=== PATIENT | male | born 1980 | race Caucasian/White ===

== ENCOUNTER 2020-12-17 07:37 | Observation (INO) ==
[2020-12-17] MEDS ORDERED: NORMAL SALINE 1,000 ML IV ONE (07:56)
--- NOTE | 2020-12-17 08:06 | ERNOTE ---
Abdominal HPI - Narrative Date of Service: 12/17/20 - General Chief Complaint: Abdominal Pain Time Seen by Provider: 12/17/20 07:56 Source: patient, family Exam Limitations: no limitations - Immun/Allergies/Home Medications Immunizatons: IMMUNIZATION HX Immunizations Up to Date Yes History of Influenza Vaccine No Hx Pneumococcal Vaccination No Allergies/Adverse Reactions: Allergies Sulfa (Sulfonamide Antibiotics) [Sulfa(Sulfonamide Antibiotics)] Allergy (Verified 11/18/20 17:23) ciprofloxacin [From Cipro] Adverse Reaction (Verified 11/18/20 17:23) pain in legs ciprofloxacin HCl [From Cipro] Adverse Reaction (Verified 11/18/20 17:23) pain in legs Home Medications: HOME MEDICATIONS fluoxetine 20 mg capsule 40 mg PO DAILY #60 cap 09/12/20 [Last Taken Unknown] olanzapine 15 mg tablet 15 mg PO HS #30 tab 09/12/20 [Last Taken Unknown] Omeprazole 40 mg PO DAILY #10 capsule. 11/18/20 [Last Taken Unknown] alprazolam 2 mg tablet 2 mg PO TID PRN #90 tab 11/28/20 [Last Taken Unknown] Cyclobenzaprine HCl 10 mg PO DAILY 12/17/20 [Last Taken Unknown] - History of Present Illness Narrative: Patient presents to the ED for eyes turning yellow. He reportedly is a heavy drinker. For the last few days he has noticed diffuse abdominal pain and his eyes turning yellow. No CP or SOB. He has cut back his drinking due to this. Denies any withdrawal symptoms. No fever. He has had pancreatitis before but this feels different. Has never had anything like this before. Has not seen anyone else for this new problem. Timing: constant, getting worse Quality: moderate Activities at Onset: none Modifying Factors - (Improves): Present: other - nothing Modifying Factors - (Worsens): Present: other - nothing Associated Symptoms: Absent: diarrhea-gross blood, fever/chills, shortness of breath Prior Abdominal Problems: Absent: similar symptoms Prior Treatment: Absent: recently seen Review of Systems - Review of Systems Constitutional: Absent: fever EYE: Present: see HPI ENT: Absent: sore throat Respiratory: Absent: shortness of breath Cardiology: Absent: chest pain Gastrointestinal/Abdominal: Present: abdominal pain Genitourinary: Present: other - ydark urine Neurological: Absent: weakness All Other Systems: All systems neg except as marked Medical History (Last Reviewed 12/17/20 @ 08:05 by Kel Jackson MD) Insomnia due to mental disorder (Chronic) Major depression (Chronic) Generalized anxiety disorder (Chronic) Lumbar back pain with radiculopathy affecting right lower extremity (Acute) Onset Date: ~2012 Chronic back pain (Chronic) Onset Date: Unknown Anxiety (Resolved) Onset Date: Unknown Depression (Resolved) Onset Date: Unknown Surgical History: Surgical History (Last Reviewed 12/17/20 @ 08:05 by Kel Jackson MD) H/O adenoidectomy Onset Date: Unknown H/O nasal septoplasty Onset Date: Unknown History of tonsillectomy Onset Date: Unknown finger surgery Onset Date: ~1998 right 5th Family History: Family History (Last Reviewed 12/17/20 @ 08:05 by Kel Jackson MD) Father Heart disease COPD (chronic obstructive pulmonary disease) Mother Hyperlipemia Heart disease Social History: (Last Reviewed 12/17/20 @ 08:05 by Kel Jackson MD) Social History: adopted: No foster care: No chcf: No Marital status: Single lives independently: No household members: family caregiver/support person: No current occupational status: disabled Highest level of school completed/degree received: high school graduate Service: No Tobacco: Smoking Status: Current every day smoker tobacco type: cigarettes Smoking cigarettes per day: 5 Alcohol: alcohol intake: current Alcohol type: beer alcohol intake frequency: other details: hx of ETOH abuse decrease to two beers per day two days ago Substance Use: substance use type: does not use details: occassional Dietary Habits: caffeine: Yes caffeine comment: some days Physical Exam - Physical Exam General Appearance: Present: alert, no apparent distress, other - jaundice Head Exam: Present: normal inspection, no evidence of injury Eye Exam: Normal inspection: bilateral - scleral icterus, PERRL: bilateral Ears, Nose, Throat: Present: normal ENT inspection Neck: Present: normal inspection Respiratory: Present: no respiratory distress Cardiovascular/Chest: Present: normal peripheral pulses, tachycardia Gastrointestinal/Abdominal: Present: normal bowel sounds, soft, other - mild diffuse abdominal tendenress, no peritoneal signs Back Exam: Absent: CVA tenderness (R), CVA tenderness (L) Extremity Exam: Present: normal range of motion, pedal edema Neurological Exam: Present: alert, no motor/sensory deficits Skin Exam: Present: warm/dry, jaundice Progress - Results and Orders Patient's Lab Results:: I have reviewed the patient's lab results. - Vital Signs Patient's Vital Signs:: I have reviewed the patient's vital signs. Vital Signs: Vital Signs 12/17/20 07:40 Temperature 37.2 C Pulse Rate 108 H Respiratory Rate 14 Blood Pressure 143/104 H O2 Sat by Pulse Oximetry 96 - CT/Ultrasound CT/Ultrasound Narrative: I reviewed official US report for abdominal ultrasound - Progress/Reassessment Chief Complaint: Abdominal Pain Progress Note-Subjective: 12/17/20 16:27 Patient given IV fluids. I initially spoke with Dr Crowley wit plan to transfer to [facility]. I spoke with Dr Leon at [facility]. Patient accepted for direct admit but no beds available. Initially it was felt that bed may become available this afternoon but after calling several times it became clear that no bed would be available until tomorrow at [facility] for transfer. Given this case management contacted, patient will be admitted obs here pending transfer to [facility]. I discussed the case again with Dr Crowley who will admit obs pending transfer. Departure Clinical Impression: Jaundice, Hyperbilirubinemia, Elevated liver enzymes, Alcohol abuse - Departure Disposition: Still a patient Condition: Fair Referrals: Johana Garrett FNP [Primary Care Provider] -
[2020-12-17 08:21] LABS: Hematocrit 43.5 % (42.0-52.0); Hemoglobin 16.1 gm/dL (13.5-18.0); Mean Corpuscular Hemoglobin 33.7 pg (27-31); Mean Platelet Volume 10.6 fl (8-11.3); Neutrophil # 8.4 K/mm3 (1.3-6.0); Neutrophil % 70.3 % (42-75.0); Platelet Count 149 K/mm3 (150-450); Red Blood Count 4.78 M/mm3 (4.7-6.0); Red Cell Distribution Width 15.9 % (11.5-14.0); White Blood Count 11.9 K/mm3 (4.0-10.5)
[2020-12-17 08:26] LABS: Urine Bilirubin 6 mg/dl (NEGATIVE); Urine Blood Negative /ul (NEGATIVE); Urine Ketone 5 mg/dL (NEGATIVE); Urine Protein 100 mg/dL (NEGATIVE); Urine Urobilinogen Normal (NORMAL)
[2020-12-17 08:30] LABS: Prothrombin Time (Patient) 14.8 Seconds (9.1-10.7)
[2020-12-17 08:36] LABS: INR 1.45 INR (0.92-1.08)
[2020-12-17 08:37] LABS: Partial Thrombolplastin Time 30.6 Seconds (24-32)
[2020-12-17 08:38] LABS: Urine Appearance Slightly Cloudy (CLEAR); Urine Bacteria 2+; Urine Color Orange; Urine Nitrite Positive (NEGATIVE); Urine RBC 0-5 /hpf (0-5); Urine WBC 0-5 /hpf (0-5)
[2020-12-17 08:39] LABS: Urine Mucus Moderate - 2+
[2020-12-17 08:44] LABS: ALT 262 U/L (19-67); Albumin * 2.6 gm/dl (3.4-5.0); Alkaline Phosphatase * 838 U/L (50-170); Anion Gap 20.3 mmol/L (6.8-13.8); BUN/Creatinine Ratio 4.1 (9.0-21.6); Bilirubin, Total 17.4 mg/dL (0.0-1.1); Blood Urea Nitrogen 5 mg/dL (6-23); CK Total * 323 U/L (0-259); CRP 4.4 mg/dL (0.0-0.9); Ca. Corrected For Albumin 9.1 mg/dL (8.4-10.2); Calcium * 8.3 mg/dL (7.9-10.9); Carbon Dioxide 19.5 mmol/L (24-32.6); Chloride 93 mmol/L (97-106); Glucose * 157 mg/dL (70-110); Lipase 41 U/L (73-393); Potassium 2.8 mmol/L (3.4-4.6); Sodium 130 mmol/L (132-142); TSH * 2.824 uIU/mL (0.358-3.74); Total Protein 6.3 gm/dL (6.2-8.2)
[2020-12-17 08:52] LABS: Urine Barbiturate Negative (NEGATIVE)
[2020-12-17 08:53] LABS: Cocaine Ur Negative (NEGATIVE); Urine Benzodiazepines Positive (NEGATIVE); Urine Opiates Negative (NEGATIVE); Urine PCP Negative (NEGATIVE); Urine THC Positive (NEGATIVE)
[2020-12-17] MEDS ORDERED: POTASSIUM CHLORIDE IN WATER 100 ML IV ONE (08:59)
[2020-12-17] MEDS ORDERED: cefTRIAXone SODIUM 1,000 MG/100 ML BAG IV ONE (09:02)
[2020-12-17 09:11] LABS: Bilirubin Direct 14.1 mg/dL (0.0-0.3); Magnesium 1.5 mg/dL (1.2-2.8)
[2020-12-17 10:01] LABS: AST 331 U/L (0-48)
--- NOTE | 2020-12-17 17:16 | HP ---
Chief Complaint - Chief Complaint Date of Service: 12/17/20 Time of Service: 16:36 Chief Complaint: Abdominal pain History of Present Illness: 40-year-old male with a past medical history of alcohol abuse, depression, anxiety, insomnia, lumbar back pain with radiculopathy presents from home with complaints of abdominal pain and jaundice. He states his abdominal pain started a month and a half ago. His last drink was 3 days ago. He typically drinks 4 to 5, 25 ounce beers daily. He states he stopped drinking 3 days ago because he noted his eyes were yellow. He presented to the ER today and was found to have white blood cell count of 11.9, sodium of 130, potassium of 2.8, lactic acid of 2.6, direct bilirubin of 14.1, AST of 331, ALT of 262, alk phos of 838, GGT of 2591, tox screen is positive for benzos and marijuana. Ultrasound of his abdomen was positive for severe diffuse hepatic steatosis and hepatic enlargement, no appreciable bile duct dilation, gallbladder wall is at the upper limit of normal thickness with some very minimal joaquin-Quyen cystic fluid, no evidence of gallstones or acute cholecystitis, ERCP may be warranted if symptoms persist. ER physician attempted to transfer the patient to the [facility] to be evaluated by GI/hepatology but there are currently no beds available. The ER physician stated that he was told there will be a bed available tomorrow. Patient will be admitted today for intermittent management until transfer can be arranged to for higher level of care. Medical History (Last Reviewed 12/17/20 @ 17:45 by Kobi Phan RN) Insomnia due to mental disorder (Chronic) Major depression (Chronic) Generalized anxiety disorder (Chronic) Lumbar back pain with radiculopathy affecting right lower extremity (Acute) Onset Date: ~2012 Chronic back pain (Chronic) Onset Date: Unknown Anxiety (Resolved) Onset Date: Unknown Depression (Resolved) Onset Date: Unknown Surgical History: Surgical History (Last Reviewed 12/17/20 @ 17:45 by Kobi Phan RN) H/O adenoidectomy Onset Date: Unknown H/O nasal septoplasty Onset Date: Unknown History of tonsillectomy Onset Date: Unknown finger surgery Onset Date: ~1998 right 5th Family History: Family History (Last Reviewed 12/17/20 @ 17:45 by Kobi Phan RN) Father Heart disease COPD (chronic obstructive pulmonary disease) Mother Hyperlipemia Heart disease Social History: (Last Reviewed 12/17/20 @ 17:45 by Kobi Phan RN) Social History: adopted: No foster care: No fci: No Marital status: Single lives independently: No household members: family caregiver/support person: No current occupational status: disabled Highest level of school completed/degree received: high school graduate Service: No Tobacco: Smoking Status: Current every day smoker tobacco type: cigarettes Smoking cigarettes per day: 5 Alcohol: alcohol intake: current Alcohol type: beer alcohol intake frequency: other details: hx of ETOH abuse decrease to two beers per day two days ago Substance Use: substance use type: does not use details: occassional Dietary Habits: caffeine: Yes caffeine comment: some days Review Of Systems (GEN) - Review of Systems Generalized/Overall Review: Present: Chills. Absent: Fever EENTM: Present: Other - Jaundice bilaterally Respiratory: Absent: Shortness of Breath Cardiac: Absent: Chest Pain Abdominal: Present: Abdominal Pain - Diffuse Misc: All systems neg except as marked Immunizations: IMMUNIZATION HX Immunizations Up to Date Yes History of Influenza Vaccine No Hx Pneumococcal Vaccination No Allergies/Adverse Reactions: Allergies Allergy/AdvReac Type Severity Reaction Status Date / Time Sulfa (Sulfonamide Allergy Verified 12/17/20 17:45 Antibiotics) [Sulfa(Sulfonamide Antibiotics)] ciprofloxacin [From Cipro] AdvReac pain in Verified 12/17/20 17:45 legs ciprofloxacin HCl AdvReac pain in Verified 12/17/20 17:45 [From Cipro] legs Home Medications: HOME MEDICATIONS fluoxetine 20 mg capsule 40 mg PO DAILY #60 cap 09/12/20 [Last Taken Unknown] olanzapine 15 mg tablet 15 mg PO HS #30 tab 09/12/20 [Last Taken Unknown] Omeprazole 40 mg PO DAILY #10 capsule. 11/18/20 [Last Taken Unknown] alprazolam 2 mg tablet 2 mg PO TID PRN #90 tab 11/28/20 [Last Taken Unknown] Cyclobenzaprine HCl 10 mg PO BID 12/17/20 [Last Taken Unknown] Exam - Exam Vital Signs: Vital Signs - Last Taken Temp 37.2 C 12/17/20 07:40 Pulse 104 H 12/17/20 13:30 Resp 19 12/17/20 13:30 BP 119/91 H 12/17/20 13:30 Pulse Ox 97 12/17/20 13:30 Constitutional: Present: Alert, Cooperative, Well developed, Well nourished, No distress, Young ENT Exam: Present: moist mucous membranes Eye Exam: bilateral eye: PERRL, EOMI, scleral icterus Neck: Present: non-tender, supple. Absent: lymphadenopathy (R), lymphadenopathy (L) Back Exam: Present: no CVA tenderness, no vertebral tenderness Respiratory: Present: lungs clear, no respiratory distress, no accessory muscle use, No wheezing. Absent: crackles, rhonchi Cardiovascular/Chest: Present: normal peripheral pulses, regular rate, rhythm, no murmur, edema - 2+ pitting bilateral lower extremities Peripheral Pulses: dorsalis-pedis (R): 1+, dorsalis-pedis (L): 1+ Abdomen: Present: Normal bowel sounds, soft, no rebound tenderness, obese, tender - Right upper quadrant Extremity: Present: lower extremity edema - 2+ pitting bilateral lower extremities Skin Exam: Present: normal color, warm/dry Neurologic: Present: alert, normal mood/affect Appearance: Present: appropriate appearance, appropriate insight Eye contact: Present: cooperative Thoughts: Present: normal mood /affect Diagnostic Studies: Abnormal Lab Results 12/17/20 12/17/20 12/17/20 Range/Units 08:10 08:10 08:10 WBC 11.9 H (4.0-10.5) K/mm3 MCH 33.7 H (27-31) pg MCHC 37.0 H (32-36) g/dl RDW 15.9 H (11.5-14.0) % Plt Count 149 L (150-450) K/mm3 Immature Gran # (Auto) 0.05 H (0.000-0.0310) K/mm3 Neutrophils # 8.4 H (1.3-6.0) K/mm3 PT 14.8 H (9.1-10.7) Seconds INR (Anticoag Therapy) 1.45 H (0.92-1.08) INR Sodium (132-142) mmol/L Potassium (3.4-4.6) mmol/L Chloride (97-106) mmol/L Carbon Dioxide (24-32.6) mmol/L Anion Gap (6.8-13.8) mmol/L BUN (6-23) mg/dL BUN/Creatinine Ratio (9.0-21.6) Random Glucose (70-110) mg/dL Lactic Acid, Venous (0.4-2.0) mmol/L Total Bilirubin (0.0-1.1) mg/dL Direct Bilirubin (0.0-0.3) mg/dL GGT (4-104) U/L AST (0-48) U/L ALT (19-67) U/L Alkaline Phosphatase (50-170) U/L Creatine Kinase (0-259) U/L C-Reactive Prot, Quant (0.0-0.9) mg/dL Albumin (3.4-5.0) gm/dl Lipase (73-393) U/L Procalcitonin 1.65 H (0.05-0.50) ng/mL Urine Protein (NEGATIVE) mg/dL Urine Glucose (UA) (NEGATIVE) mg/dL Urine Nitrate (NEGATIVE) Urine Bilirubin (NEGATIVE) mg/dl Ur Epithelial Cells (0-5) /hpf Urine Bacteria (NONE) Urine Mucus (NONE) Acetaminophen (10.0-30.0) mcg/mL U Benzodiazepines Scrn (NEGATIVE) Urine Marijuana (THC) (NEGATIVE) 12/17/20 12/17/20 12/17/20 Range/Units 08:10 08:10 08:10 WBC (4.0-10.5) K/mm3 MCH (27-31) pg MCHC (32-36) g/dl RDW (11.5-14.0) % Plt Count (150-450) K/mm3 Immature Gran # (Auto) (0.000-0.0310) K/mm3 Neutrophils # (1.3-6.0) K/mm3 PT (9.1-10.7) Seconds INR (Anticoag Therapy) (0.92-1.08) INR Sodium 130 L (132-142) mmol/L Potassium 2.8 L (3.4-4.6) mmol/L Chloride 93 L (97-106) mmol/L Carbon Dioxide 19.5 L (24-32.6) mmol/L Anion Gap 20.3 H (6.8-13.8) mmol/L BUN 5 L D (6-23) mg/dL BUN/Creatinine Ratio 4.1 L (9.0-21.6) Random Glucose 157 H (70-110) mg/dL Lactic Acid, Venous 2.6 H* (0.4-2.0) mmol/L Total Bilirubin 17.4 H (0.0-1.1) mg/dL Direct Bilirubin 14.1 H (0.0-0.3) mg/dL GGT 2591 H (4-104) U/L AST 331 H (0-48) U/L ALT 262 H (19-67) U/L Alkaline Phosphatase 838 H (50-170) U/L Creatine Kinase 323 H (0-259) U/L C-Reactive Prot, Quant 4.4 H (0.0-0.9) mg/dL Albumin 2.6 L (3.4-5.0) gm/dl Lipase 41 L (73-393) U/L Procalcitonin (0.05-0.50) ng/mL Urine Protein (NEGATIVE) mg/dL Urine Glucose (UA) (NEGATIVE) mg/dL Urine Nitrate (NEGATIVE) Urine Bilirubin (NEGATIVE) mg/dl Ur Epithelial Cells (0-5) /hpf Urine Bacteria (NONE) Urine Mucus (NONE) Acetaminophen Less than 0.2 L (10.0-30.0) mcg/mL U Benzodiazepines Scrn (NEGATIVE) Urine Marijuana (THC) (NEGATIVE) 12/17/20 12/17/20 Range/Units 08:22 08:22 WBC (4.0-10.5) K/mm3 MCH (27-31) pg MCHC (32-36) g/dl RDW (11.5-14.0) % Plt Count (150-450) K/mm3 Immature Gran # (Auto) (0.000-0.0310) K/mm3 Neutrophils # (1.3-6.0) K/mm3 PT (9.1-10.7) Seconds INR (Anticoag Therapy) (0.92-1.08) INR Sodium (132-142) mmol/L Potassium (3.4-4.6) mmol/L Chloride (97-106) mmol/L Carbon Dioxide (24-32.6) mmol/L Anion Gap (6.8-13.8) mmol/L BUN (6-23) mg/dL BUN/Creatinine Ratio (9.0-21.6) Random Glucose (70-110) mg/dL Lactic Acid, Venous (0.4-2.0) mmol/L Total Bilirubin (0.0-1.1) mg/dL Direct Bilirubin (0.0-0.3) mg/dL GGT (4-104) U/L AST (0-48) U/L ALT (19-67) U/L Alkaline Phosphatase (50-170) U/L Creatine Kinase (0-259) U/L C-Reactive Prot, Quant (0.0-0.9) mg/dL Albumin (3.4-5.0) gm/dl Lipase (73-393) U/L Procalcitonin (0.05-0.50) ng/mL Urine Protein 100 H (NEGATIVE) mg/dL Urine Glucose (UA) 100 H (NEGATIVE) mg/dL Urine Nitrate Positive H (NEGATIVE) Urine Bilirubin 6 H (NEGATIVE) mg/dl Ur Epithelial Cells 5-10 H (0-5) /hpf Urine Bacteria 2+ H (NONE) Urine Mucus Moderate - 2+ H (NONE) Acetaminophen (10.0-30.0) mcg/mL U Benzodiazepines Scrn Positive H (NEGATIVE) Urine Marijuana (THC) Positive H (NEGATIVE) Laboratory Results WBC 11.9 K/mm3 (4.0-10.5) H 12/17/20 08:10 RBC 4.78 M/mm3 (4.7-6.0) 12/17/20 08:10 Hgb 16.1 gm/dL (13.5-18.0) 12/17/20 08:10 Hct 43.5 % (42.0-52.0) 12/17/20 08:10 MCV 91.0 fl (78-100) 12/17/20 08:10 MCH 33.7 pg (27-31) H 12/17/20 08:10 MCHC 37.0 g/dl (32-36) H 12/17/20 08:10 RDW 15.9 % (11.5-14.0) H 12/17/20 08:10 Plt Count 149 K/mm3 (150-450) L 12/17/20 08:10 MPV 10.6 fl (8-11.3) 12/17/20 08:10 Immature Gran % (Auto) 0.40 % (0.001-0.429) 12/17/20 08:10 Immature Gran # (Auto) 0.05 K/mm3 (0.000-0.0310) H 12/17/20 08:10 Neutrophils % 70.3 % (42-75.0) 12/17/20 08:10 Lymphocytes % 22.5 % (20-51) 12/17/20 08:10 Monocytes % 5.6 % (0.0-9) 12/17/20 08:10 Eosinophils % 0.8 % (0.0-3.0) 12/17/20 08:10 Basophils % 0.4 % (0.0-1.0) 12/17/20 08:10 Nucleated RBC % 0.0 k/mm3 (0-1) 12/17/20 08:10 Neutrophils # 8.4 K/mm3 (1.3-6.0) H 12/17/20 08:10 Lymphocytes # 2.68 k/mm3 (1.5-3.5) 12/17/20 08:10 Monocytes # 0.7 k/mm3 (0.0-1.0) 12/17/20 08:10 Eosinophils # 0.1 k/mm3 (0.0-0.7) 12/17/20 08:10 Absolute Basophils 0.1 k/mm3 (0.0-0.1) 12/17/20 08:10 PT 14.8 Seconds (9.1-10.7) H 12/17/20 08:10 INR (Anticoag Therapy) 1.45 INR (0.92-1.08) H 12/17/20 08:10 PTT ([place]ryn) 30.6 Seconds (24-32) D 12/17/20 08:10 Sodium 130 mmol/L (132-142) L 12/17/20 08:10 Plasma Sodium 131 mmol/L (130-142) 12/17/20 08:10 Potassium 2.8 mmol/L (3.4-4.6) L 12/17/20 08:10 Chloride 93 mmol/L (97-106) L 12/17/20 08:10 Carbon Dioxide 19.5 mmol/L (24-32.6) L 12/17/20 08:10 Anion Gap 20.3 mmol/L (6.8-13.8) H 12/17/20 08:10 BUN 5 mg/dL (6-23) L D 12/17/20 08:10 Creatinine 1.21 mg/dL (0.4-1.4) 12/17/20 08:10 Est GFR (Non-Af Amer) 70 mL/min (60-130) 12/17/20 08:10 BUN/Creatinine Ratio 4.1 (9.0-21.6) L 12/17/20 08:10 Random Glucose 157 mg/dL (70-110) H 12/17/20 08:10 Lactic Acid, Venous 1.0 mmol/L (0.4-2.0) 12/17/20 11:03 Calcium 8.3 mg/dL (7.9-10.9) 12/17/20 08:10 Calcium Adj for Albumin 9.1 mg/dL (8.4-10.2) 12/17/20 08:10 Magnesium 1.5 mg/dL (1.2-2.8) 12/17/20 08:10 Total Bilirubin 17.4 mg/dL (0.0-1.1) H 12/17/20 08:10 Direct Bilirubin 14.1 mg/dL (0.0-0.3) H 12/17/20 08:10 GGT 2591 U/L (4-104) H 12/17/20 08:10 AST 331 U/L (0-48) H 12/17/20 08:10 ALT 262 U/L (19-67) H 12/17/20 08:10 Alkaline Phosphatase 838 U/L (50-170) H 12/17/20 08:10 Ammonia 31.0 mcmol/L (11-35) 12/17/20 08:10 Creatine Kinase 323 U/L (0-259) H 12/17/20 08:10 C-Reactive Prot, Quant 4.4 mg/dL (0.0-0.9) H 12/17/20 08:10 Total Protein 6.3 gm/dL (6.2-8.2) 12/17/20 08:10 Albumin 2.6 gm/dl (3.4-5.0) L 12/17/20 08:10 Lipase 41 U/L (73-393) L 12/17/20 08:10 Procalcitonin 1.65 ng/mL (0.05-0.50) H 12/17/20 08:10 TSH 2.824 uIU/mL (0.358-3.74) 12/17/20 08:10 Urine Color [place] 12/17/20 08:22 Urine Appearance Slightly cloudy (CLEAR) 12/17/20 08:22 Urine pH 7.0 pH (5.0-7.0) 12/17/20 08:22 Ur Specific [place] 1.020 SP.GR. (1.005-1.030) 12/17/20 08:22 Urine Protein 100 mg/dL (NEGATIVE) H 12/17/20 08:22 Urine Glucose (UA) 100 mg/dL (NEGATIVE) H 12/17/20 08:22 Urine Ketones 5 mg/dL (NEGATIVE) 12/17/20 08:22 Urine Blood Negative /ul (NEGATIVE) 12/17/20 08:22 Urine Nitrate Positive (NEGATIVE) H 12/17/20 08:22 Urine Bilirubin 6 mg/dl (NEGATIVE) H 12/17/20 08:22 Urine Urobilinogen Normal EU/dl (NORMAL) 12/17/20 08:22 Ur Leukocyte Esterase Negative /ul (NEGATIVE) 12/17/20 08:22 Urine RBC 0-5 /hpf (0-5) 12/17/20 08:22 Urine WBC 0-5 /hpf (0-5) 12/17/20 08:22 Ur Epithelial Cells 5-10 /hpf (0-5) H 12/17/20 08:22 Urine Bacteria 2+ (NONE) H 12/17/20 08:22 Urine Mucus Moderate - 2+ (NONE) H 12/17/20 08:22 Urine Culture Comments Culture to follow 12/17/20 08:22 Urine Opiates Screen Negative (NEGATIVE) 12/17/20 08:22 Acetaminophen Less than 0.2 mcg/mL (10.0-30.0) L 12/17/20 08:10 Barbiturate Screen Negative (NEGATIVE) 12/17/20 08:22 Ur Phencyclidine Scrn Negative (NEGATIVE) 12/17/20 08:22 Urine Amphetamine Negative (NEGATIVE) 12/17/20 08:22 U Benzodiazepines Scrn Positive (NEGATIVE) H 12/17/20 08:22 Urine Cocaine Screen Negative (NEGATIVE) 12/17/20 08:22 Urine Marijuana (THC) Positive (NEGATIVE) H 12/17/20 08:22 Ethyl Alcohol Less than 3.0 mg/dL (0.0-10.0) 12/17/20 08:10 SARS-CoV-2 (PCR) Not detected (NotDetected) 12/17/20 16:05 Assessment/Plan - Narrative Narrative: 40-year-old male with a past medical history of alcohol abuse, depression, anxiety, insomnia, lumbar back pain with radiculopathy presents from home with complaints of abdominal pain and jaundice. He states his abdominal pain started a month and a half ago. His last drink was 3 days ago. He typically drinks 4 to 5, 25 ounce beers daily. He states he stopped drinking 3 days ago because he noted his eyes were yellow. He presented to the ER today and was found to have white blood cell count of 11.9, sodium of 130, potassium of 2.8, lactic acid of 2.6, direct bilirubin of 14.1, AST of 331, ALT of 262, alk phos of 838, GGT of 2591, tox screen is positive for benzos and marijuana. Abdomen is 2.6, platelets of 149,000, INR 1.45 and 14.8. Ultrasound of his abdomen was positive for severe diffuse hepatic steatosis and hepatic enlargement, no appreciable bile duct dilation, gallbladder wall is at the upper limit of normal thickness with some very minimal joaquin-Quyen cystic fluid, no evidence of gallstones or ac [place] cholecystitis, ERCP may be warranted if symptoms persist. ER physician attempted to transfer the patient to the [facility] to be evaluated by GI/hepatology but there are currently no beds available. The ER physician stated that he was told there will be a bed available tomorrow. Patient will be admitted today for intermittent management until transfer can be arranged to for higher level of care. Plan #1 replete potassium #2 remain n.p.o. #3 gentle hydration normal saline at 30 cc/h #4 CBC and CMP in the morning - Assessment/Plan (1) Acute liver failure Problem: Acute (2) Hepatic steatosis Problem: Acute (3) Abdominal pain Problem: Acute (4) Abnormal liver enzymes Problem: Acute (5) Jaundice Problem: Acute (6) Hyperbilirubinemia Problem: Acute (7) Alcohol abuse Problem: Acute (8) Major depression Problem: Chronic Qualifiers: (9) Generalized anxiety disorder Problem: Chronic
[2020-12-17] MEDS ORDERED: NORMAL SALINE 1,000 ML IV PRN (17:19)
[2020-12-17] MEDS: POTASSIUM CHLORIDE IN WATER 100 ML IV SCH ×2 (17:37→19:10)
--- NOTE | 2020-12-17 18:43 | DS ---
Transfer Discharge Summary - Diagnosis(s)/Problems (1) Acute liver failure Problem: Acute (2) Hepatic steatosis Problem: Acute (3) Abdominal pain Problem: Acute (4) Abnormal liver enzymes Problem: Acute (5) Jaundice Problem: Acute (6) Hyperbilirubinemia Problem: Acute (7) Alcohol abuse Problem: Acute (8) Major depression Problem: Chronic (9) Generalized anxiety disorder Problem: Chronic - Course Description of Stay: 40-year-old male with a past medical history of alcohol abuse, depression, anxiety, insomnia, lumbar back pain with radiculopathy presents from home with complaints of abdominal pain and jaundice. He states his abdominal pain started a month and a half ago. His last drink was 3 days ago. He typically drinks 4 to 5, 25 ounce beers daily. He states he stopped drinking 3 days ago because he noted his eyes were yellow. He presented to the ER today and was found to have white blood cell count of 11.9, sodium of 130, potassium of 2.8, lactic acid of 2.6, direct bilirubin of 14.1, AST of 331, ALT of 262, alk phos of 838, GGT of 2591, tox screen is positive for benzos and marijuana. Abdomen is 2.6, platelets of 149,000, INR 1.45 and 14.8. Ultrasound of his abdomen was positive for severe diffuse hepatic steatosis and hepatic enlargement, no appreciable bile duct dilation, gallbladder wall is at the upper limit of normal thickness with some very minimal joaquin-Quyen cystic fluid, no evidence of gallstones or acute cholecystitis, ERCP may be warranted if symptoms persist. ER physician attempted to transfer the patient to the [facility] to be evaluated by GI/hepatology but there are currently no beds available. The ER physician stated that he was told there will be a bed available tomorrow. Patient will be admitted today for intermittent management until transfer can be arranged to for higher level of care. Patient remained stable and a bed at the [facility] became available. I spoke with Dr. Cox and he accepted the patient for transfer tonight for acute liver failure secondary to alcohol abuse. The patient is stable to be transferred now. Procedures Performed: none - Results and Findings Results and Findings: Laboratory Results - last 24 hr 12/17/20 12/17/20 12/17/20 08:10 08:10 08:10 WBC 11.9 H RBC 4.78 Hgb 16.1 Hct 43.5 MCV 91.0 MCH 33.7 H MCHC 37.0 H RDW 15.9 H Plt Count 149 L MPV 10.6 Immature Gran % (Auto) 0.40 Immature Gran # (Auto) 0.05 H Neutrophils % 70.3 Lymphocytes % 22.5 Monocytes % 5.6 Eosinophils % 0.8 Basophils % 0.4 Nucleated RBC % 0.0 Neutrophils # 8.4 H Lymphocytes # 2.68 Monocytes # 0.7 Eosinophils # 0.1 Absolute Basophils 0.1 PT 14.8 H INR (Anticoag Therapy) 1.45 H PTT ([place]) 30.6 D Sodium Plasma Sodium Potassium Chloride Carbon Dioxide Anion Gap BUN Creatinine Est GFR (Non-Af Amer) BUN/Creatinine Ratio Random Glucose Lactic Acid, Venous Calcium Calcium Adj for Albumin Magnesium Total Bilirubin Direct Bilirubin GGT AST ALT Alkaline Phosphatase Ammonia Creatine Kinase C-Reactive Prot, Quant Total Protein Albumin Lipase Procalcitonin 1.65 H TSH Urine Color Urine Appearance Urine pH Ur Specific [place] Urine Protein Urine Glucose (UA) Urine Ketones Urine Blood Urine Nitrate Urine Bilirubin Urine Urobilinogen Ur Leukocyte Esterase Urine RBC Urine WBC Ur Epithelial Cells Urine Bacteria Urine Mucus Urine Culture Comments Urine Opiates Screen Acetaminophen Barbiturate Screen Ur Phencyclidine Scrn Urine Amphetamine U Benzodiazepines Scrn Urine Cocaine Screen Urine Marijuana (THC) Ethyl Alcohol SARS-CoV-2 (PCR) 12/17/20 12/17/20 12/17/20 08:10 08:10 08:10 WBC RBC Hgb Hct MCV MCH MCHC RDW Plt Count MPV Immature Gran % (Auto) Immature Gran # (Auto) Neutrophils % Lymphocytes % Monocytes % Eosinophils % Basophils % Nucleated RBC % Neutrophils # Lymphocytes # Monocytes # Eosinophils # Absolute Basophils PT INR (Anticoag Therapy) PTT ([place]) Sodium 130 L Plasma Sodium 131 Potassium 2.8 L Chloride 93 L Carbon Dioxide 19.5 L Anion Gap 20.3 H BUN 5 L D Creatinine 1.21 Est GFR (Non-Af Amer) 70 BUN/Creatinine Ratio 4.1 L Random Glucose 157 H Lactic Acid, Venous 2.6 H* Calcium 8.3 Calcium Adj for Albumin 9.1 Magnesium Total Bilirubin 17.4 H Direct Bilirubin GGT 2591 H AST 331 H ALT 262 H Alkaline Phosphatase 838 H Ammonia 31.0 Creatine Kinase 323 H C-Reactive Prot, Quant 4.4 H Total Protein 6.3 Albumin 2.6 L Lipase 41 L Procalcitonin TSH 2.824 Urine Color Urine Appearance Urine pH Ur Specific [place] Urine Protein Urine Glucose (UA) Urine Ketones Urine Blood Urine Nitrate Urine Bilirubin Urine Urobilinogen Ur Leukocyte Esterase Urine RBC Urine WBC Ur Epithelial Cells Urine Bacteria Urine Mucus Urine Culture Comments Urine Opiates Screen Acetaminophen Less than 0.2 L Barbiturate Screen Ur Phencyclidine Scrn Urine Amphetamine U Benzodiazepines Scrn Urine Cocaine Screen Urine Marijuana (THC) Ethyl Alcohol Less than 3.0 SARS-CoV-2 (PCR) 12/17/20 12/17/20 12/17/20 08:10 08:22 08:22 WBC RBC Hgb Hct MCV MCH MCHC RDW Plt Count MPV Immature Gran % (Auto) Immature Gran # (Auto) Neutrophils % Lymphocytes % Monocytes % Eosinophils % Basophils % Nucleated RBC % Neutrophils # Lymphocytes # Monocytes # Eosinophils # Absolute Basophils PT INR (Anticoag Therapy) PTT ([place]) Sodium Plasma Sodium Potassium Chloride Carbon Dioxide Anion Gap BUN Creatinine Est GFR (Non-Af Amer) BUN/Creatinine Ratio Random Glucose Lactic Acid, Venous Calcium Calcium Adj for Albumin Magnesium 1.5 Total Bilirubin Direct Bilirubin 14.1 H GGT AST ALT Alkaline Phosphatase Ammonia Creatine Kinase C-Reactive Prot, Quant Total Protein Albumin Lipase Procalcitonin TSH Urine Color [place] Urine Appearance Slightly cloudy Urine pH 7.0 Ur Specific [place] 1.020 Urine Protein 100 H Urine Glucose (UA) 100 H Urine Ketones 5 Urine Blood Negative Urine Nitrate Positive H Urine Bilirubin 6 H Urine Urobilinogen Normal Ur Leukocyte Esterase Negative Urine RBC 0-5 Urine WBC 0-5 Ur Epithelial Cells 5-10 H Urine Bacteria 2+ H Urine Mucus Moderate - 2+ H Urine Culture Comments Culture to follow Urine Opiates Screen Negative Acetaminophen Barbiturate Screen Negative Ur Phencyclidine Scrn Negative Urine Amphetamine Negative U Benzodiazepines Scrn Positive H Urine Cocaine Screen Negative Urine Marijuana (THC) Positive H Ethyl Alcohol SARS-CoV-2 (PCR) 12/17/20 12/17/20 11:03 16:05 WBC RBC Hgb Hct MCV MCH MCHC RDW Plt Count MPV Immature Gran % (Auto) Immature Gran # (Auto) Neutrophils % Lymphocytes % Monocytes % Eosinophils % Basophils % Nucleated RBC % Neutrophils # Lymphocytes # Monocytes # Eosinophils # Absolute Basophils PT INR (Anticoag Therapy) PTT ([place]) Sodium Plasma Sodium Potassium Chloride Carbon Dioxide Anion Gap BUN Creatinine Est GFR (Non-Af Amer) BUN/Creatinine Ratio Random Glucose Lactic Acid, Venous 1.0 Calcium Calcium Adj for Albumin Magnesium Total Bilirubin Direct Bilirubin GGT AST ALT Alkaline Phosphatase Ammonia Creatine Kinase C-Reactive Prot, Quant Total Protein Albumin Lipase Procalcitonin TSH Urine Color Urine Appearance Urine pH Ur Specific [place] Urine Protein Urine Glucose (UA) Urine Ketones Urine Blood Urine Nitrate Urine Bilirubin Urine Urobilinogen Ur Leukocyte Esterase Urine RBC Urine WBC Ur Epithelial Cells Urine Bacteria Urine Mucus Urine Culture Comments Urine Opiates Screen Acetaminophen Barbiturate Screen Ur Phencyclidine Scrn Urine Amphetamine U Benzodiazepines Scrn Urine Cocaine Screen Urine Marijuana (THC) Ethyl Alcohol SARS-CoV-2 (PCR) Not detected - Medications Medications: Active Medications Potassium Chloride/Water (Kcl 10 Meq/100 Ml Piggyback) 100 mls @ 100 mls/hr IV Q1H [place] Stop: 12/17/20 19:29 Last Admin: 12/17/20 17:37 Dose: 100 mls/hr Documented by: Sodium Chloride (Sodium Chloride 0.9%) 1,000 mls @ 30 mls/hr IV .Q24H PRN PRN Reason: HYDRATION Stop: 01/16/21 17:20 Last Admin: 12/17/20 17:37 Dose: 30 mls/hr Documented by: Discontinued Medications Sodium Chloride (Sodium Chloride 0.9%) 1,000 mls @ 150 mls/hr IV .Q6H40M ONE Stop: 12/17/20 14:35 Last Infusion: 12/17/20 15:09 Dose: Infused Documented by: Potassium Chloride/Water (Kcl 10 Meq/100 Ml Piggyback) 100 mls @ 100 mls/hr IV ONCE ONE Stop: 12/17/20 09:58 Last Infusion: 12/17/20 11:14 Dose: Infused Documented by: Ceftriaxone Sodium (Rocephin 1000 Mg Er Piggyback) 1,000 mg in 100 mls @ 200 mls/hr IV ONCE ONE Stop: 12/17/20 09:31 Last Infusion: 12/17/20 10:12 Dose: Infused Documented by: - Disposition Disposition: Short Term Hospital Inpatient Condition: Fair
[2020-12-17 19:19] VITALS: BP 121/71
[2020-12-17] MEDS ORDERED: OLANZapine 5 MG TABLET PO SCH (21:00)
[2020-12-17] MEDS ORDERED: CYCLOBENZAPRINE HCL 10 MG TABLET PO SCH (21:00)
[2020-12-18] MEDS ORDERED: PANTOPRAZOLE SODIUM 40 MG TABLET.EC PO SCH (07:00)
[2020-12-18] MEDS ORDERED: FLUoxetine HCL 20 MG CAPSULE PO SCH (09:00)
== END 2020-12-17 19:25 | disposition short-term general hospital (02) ==
LOC: ER 07:37 → MS 07:37
PROVIDERS: ADMIT Internal Medicine; ATTEND Internal Medicine